=== PATIENT | male | born 1985 | race Caucasian/White ===

== ENCOUNTER 2017-09-03 20:55 | Inpatient (IN) | payer MEDICAID ==
[~2017-09-03] VITALS: Ht 170.2 cm; Wt 77.0 kg
[2017-09-03 20:58] VITALS: Ht 170.2 cm; Wt 77.0 kg
[2017-09-03] MEDS ORDERED: morphine 4 MG/ML VIAL IV STA (21:27)
[2017-09-03] MEDS ORDERED: ONDANSETRON 4 MG INJ IV STA (21:27)
[2017-09-03 21:46] LABS: BASOPHILS % 0.3 % (0.0-2.0); EOSINOPHILS % 0.2 % (0.0-7.0); HEMOGLOBIN 13.8 g/dl (14.0-18.0); LYMPHOCYTES # 1.4 10^3/ul (0.8-2.9); LYMPHOCYTES % 11.3 % (15.0-51.0); MEAN CORPUSCULAR HEMOGLOBIN 31.4 pg (29.0-33.0); MEAN CORPUSCULAR HGB CONC 35.4 g/dl (32.0-37.0); MEAN CORPUSCULAR VOLUME 88.6 fl (82.0-101.0); MEAN PLATELET VOLUME 8.9 fl (7.4-10.4); MONOCYTE # 0.8 10^3/ul (0.3-0.9); MONOCYTES % 6.7 % (0.0-11.0); NEUTROPHIL # 9.9 10^3/ul (1.6-7.5); NEUTROPHILS % 81.2 % (39.0-77.0); PLATELET COUNT 271 10^3/UL (140-415); RED CELL DISTRIBUTION WIDTH 11.8 % (11.5-14.5); WHITE BLOOD COUNT 12.2 10^3/ul (4.8-10.8)
[2017-09-03 21:59] LABS: ADD UMIC YES; UR ASCORBIC ACID NEGATIVE (NEGATIVE); UR BILIRUBIN (Dip) NEGATIVE (NEGATIVE); UR BLOOD (Dip) 1+ mg/dL (NEGATIVE); UR CLARITY CLEAR (CLEAR); UR COLOR YELLOW (YELLOW); UR GLUCOSE (Dip) NEGATIVE (NEGATIVE); UR KETONES (Dip) 1+ mg/dL (NEGATIVE); UR LEUKOCYTE ESTERASE (Dip) NEGATIVE Leu/ul (NEGATIVE); UR NITRITE (Dip) NEGATIVE (NEGATIVE); UR RBC 6 /HPF (0-5); UR SPECIFIC GRAVITY (Dip) 1.031 (1.003-1.030); UR TOTAL PROTEIN (Dip) 1+ mg/dl (NEGATIVE); UR UROBILINOGEN (Dip) NEGATIVE (NEGATIVE)
[2017-09-03 22:04] LABS: ALBUMIN 4.4 g/dl (3.3-4.9); ALBUMIN/GLOBULIN RATIO 1.29; BILIRUBIN,INDIRECT 0.5 mg/dl (0-1.1); BILIRUBIN,TOTAL 0.5 mg/dl (0.2-1.3); CALCIUM 9.8 mg/dl (8.4-10.2); CREATININE 0.84 mg/dl (0.61-1.24); POTASSIUM 3.8 mmol/L (3.5-5.1); TOTAL PROTEIN 7.8 g/dl (6.1-8.1)
--- NOTE | 2017-09-03 22:33 | ERD ---
ER Documentation Chief Complaint Chief Complaint RLQ abd pain x 1 day HPI This is a 32-year-old male who presents emergency department today complaining of right-sided abdominal pain that started yesterday. Patient states he has had nausea but no vomiting. States he had one bout of diarrhea this morning. States that he took Tylenol and Motrin for pain with some improvement in symptoms. Denies any fevers or chills. Denies any dysuria, hematuria.. ROS All systems reviewed and are negative except as per history of present illness. Allergies Allergies: Coded Allergies: No Known Allergy (Unverified , 09/03/17) PMhx/Soc Medical and Surgical Hx: pt denies Medical Hx, pt denies Surgical Hx Hx Alcohol Use: No Hx Substance Use: No Hx Tobacco Use: No Smoking Status: Never smoker Physical Exam Vitals Vital Signs Date Time Temp Pulse Resp B/P Pulse Ox O2 Delivery O2 Flow Rate FiO2 09/03/17 20:58 97.9 65 20 133/80 98 Physical Exam Const: NAD Head: Atraumatic Eyes: Normal Conjunctiva ENT: Normal External Ears, Nose and Mouth. Neck: Full range of motion..~ No meningismus. Resp: Clear to auscultation bilaterally Cardio: Regular rate and rhythm, no murmurs Abd: Soft, lower quadrant tenderness at McBurney's. non distended. Normal bowel sounds no left lower quadrant pain. No epigastric or right upper quadrant pain. Skin: No petechiae or rashes Back: No midline or flank tenderness Ext: No cyanosis, or edema Neur: Awake and alert Psych: Normal Mood and Affect Result Diagram: 09/03/17213609/03/172136 Results 24 hrs Laboratory Tests Test 09/03/17 21:37 White Blood Count 12.210^3/ul Red Blood Count 4.4010^6/ul Hemoglobin 13.8g/dl Hematocrit 39.0% Mean Corpuscular Volume 88.6fl Mean Corpuscular Hemoglobin 31.4pg Mean Corpuscular Hemoglobin Concent 35.4g/dl Red Cell Distribution Width 11.8% Platelet Count 68627^3/UL Mean Platelet Volume 8.9fl Neutrophils % 81.2% Lymphocytes % 11.3% Monocytes % 6.7% Eosinophils % 0.2% Basophils % 0.3% Nucleated Red Blood Cells % 0.0/100WBC Neutrophils # 9.910^3/ul Lymphocytes # 1.410^3/ul Monocytes # 0.810^3/ul Eosinophils # 0.010^3/ul Basophils # 0.010^3/ul Nucleated Red Blood Cells # 0.010^3/ul Urine Color YELLOW Urine Clarity CLEAR Urine pH 7.0 Urine Specific [place] 1.031 Urine Ketones 1+mg/dL Urine Nitrite NEGATIVEmg/dL Urine Bilirubin NEGATIVEmg/dL Urine Urobilinogen NEGATIVEmg/dL Urine Leukocyte Esterase NEGATIVELeu/ul Urine Microscopic RBC 6/HPF Urine Microscopic WBC 1/HPF Urine Hemoglobin 1+mg/dL Urine Glucose NEGATIVEmg/dL Urine Total Protein 1+mg/dl Sodium Level 146mmol/L Potassium Level 3.8mmol/L Chloride Level 108mmol/L Carbon Dioxide Level 27mmol/L Anion Gap 15 Blood Urea Nitrogen 13mg/dl Creatinine 0.84mg/dl Glucose Level 117mg/dl Calcium Level 9.8mg/dl Total Bilirubin 0.5mg/dl Direct Bilirubin 0.00mg/dl Indirect Bilirubin 0.5mg/dl Aspartate Amino Transf (AST/SGOT) 27IU/L Alanine Aminotransferase (ALT/SGPT) 45IU/L Alkaline Phosphatase 45IU/L Total Protein 7.8g/dl Albumin 4.4g/dl Globulin 3.40g/dl Albumin/Globulin Ratio 1.29 Lipase 72U/L Current Medications Medications (Trade) Dose Ordered Sig/Oliva Route PRN Reason Start Time Stop Time Status Last Admin Dose Admin Morphine Sulfate (morphine) 4 mg ONCE STAT IV 09/03/17 21:27 09/03/17 21:29 DC 09/03/17 21:42 Ondansetron HCl (Zofran Inj) 4 mg ONCE STAT IV 09/03/17 21:27 09/03/17 21:29 DC 09/03/17 21:42 Ketorolac Tromethamine (Toradol) 30 mg ONCE STAT IV 09/03/17 22:46 09/03/17 22:48 DC 09/03/17 22:53 DIAGNOSTIC IMAGING REPORT Patient: NILSA GALINDO : 1985 Age: 32 Sex: M MR #: [id number] DOS: 09/03/172126 Ordering MD: RANDI SHAH PA-C Location: [facility] Room/Bed: PROCEDURE: CT abdomen and pelvis without intravenous contrast. CLINICAL INDICATION: Pain. TECHNIQUE: CT of the abdomen/pelvis was performed utilizing axial images with reconstructions in sagittal and coronal planes. The administered radiation dose is CTDI 9.4 mGy, DLP 570 mGy-cm. One or more of the following dose reduction techniques were used: automated exposure control, adjustment of the mA and/or kV according to patient size and/or use of iterative reconstruction technique. COMPARISON: No pertinent prior examinations were submitted for comparison. FINDINGS: Visualized Chest: The visualized lung bases are clear. Abdomen: The spleen, pancreas, gallbladder,and adrenal glands are unremarkable. The liver is diffusely decreased in attenuation, compatible with hepatic steatosis. The kidneys are without hydronephrosis. No definite urinary calculi are seen. The appendix is identified in the right lower quadrant. The appendix is enlarged , measuring up to 11 mm and there are moderate periappendiceal inflammatory changes. A 10 mm fecalith is noted at the base of the appendix. No regional fluid collections are seen. There is no evidence of bowel obstruction. There is no evidence of intra-abdominal adenopathy or free fluid. Pelvis: There is no evidence of pelvic adenopathy or free fluid. The prostate and bladder are unremarkable. There is a moderate-sized fat-containing right inguinal hernia. Osseous structures: Unremarkable. IMPRESSION: Appendicitis. Hepatic steatosis. Moderate-sized fat-containing right inguinal hernia. RPTAT: HIKT .Mark Tamez MD MD Date Time Electronically viewed and signed by .Mark Tamez MD, on 09/03/2017 22:33 .T/ CC: RANDI SHAH PA-C Procedures/[facility] This is a 32-year-old male who presents the emergency department today complaining of right-sided abdominal pain that started yesterday as well as some nausea. On physical exam patient has right lower quadrant [facility] and given this I did obtain laboratory workup as well as imaging. Laboratory workup a mildly elevated white blood cell count. His hemoglobin is very mildly decreased. Platelets are within normal limits. Sodium is very mildly elevated otherwise electro lites are within normal limits. Glucose is within normal limits. Liver enzymes are within normal limits. Lipase is within normal limits. UA is negative for infection there is 6 microscopic red blood cells. CT abdomen pelvis noncontrast shows the appendix is identified in the right lower quadrant and is enlarged measuring up to 11 m millimeters and there are moderate periappendiceal inflammatory changes. There is a 10 mm fecalith noted the base of the appendix. There are no regional collections of fluid seen. There is no evidence of bowel obstruction. There is a moderate sized fat- containing right inguinal hernia. Symptoms at this time most consistent with acute appendicitis. I have discussed the patient with Dr. Gtz and he is agreed to admit the patient. Patient agreed to be admitted to the hospital. Any further orders placed will be completed by Dr. Gtz or the admitting surgeon. Patient was given morphine and Zofran here in the emergency department. He was continued to complain of pain and was therefore given Toradol. Departure Diagnosis: Primary Impression: Appendicitis Appendicitis type: acute appendicitis Acute appendicitis type: unspecified acute appendicitis type Qualified Code: K35.80 - Acute appendicitis, unspecified acute appendicitis type Condition: Fair RANDI SHAH PA-C Sep 03, 2017 22:33
--- NOTE | 2017-09-03 22:33 | RADRPT ---
PROCEDURE: CT abdomen and pelvis without intravenous contrast. CLINICAL INDICATION: Pain. TECHNIQUE: CT of the abdomen/pelvis was performed utilizing axial images with reconstructions in s agittal and coronal planes. The administered radiation dose is CTDI 9.4 mGy, DLP 570 mGy-cm. One or more of the following dose reduction techniques were used: automated exposure control, adjustment of the mA and/or kV according to patient size and/or use of iterative reconstruction technique. COMPARISON: No pertinent prior examinations were submitted for comparison. FINDINGS: Visualized Chest: The visualized lung bases are clear. Abdomen: The spleen, pancreas, gallbladder,and adrenal glands are unremarkable. The liver is diffusely dec reased in attenuation, compatible with hepatic steatosis. The kidneys are without hydronephrosis. No definite urinary calculi are seen. The appendix is identified in the right lower quadrant. The appendix is enlarged, measuring up to 11 mm and there are moderate periappendiceal inflammatory changes. A 10 mm fecalith is noted at the ba se of the appendix. No regional fluid collections are seen. There is no evidence of bowel obstructio n. There is no evidence of intra-abdominal adenopathy or free fluid. Pelvis: There is no evidence of pelvic adenopathy or free fluid. The prostate and bladder are unremarkable. There is a moderate-sized fat-containing right inguinal hernia. Osseous structures: Unremarkable. IMPRESSION: Appendicitis. Hepatic steatosis. Moderate-sized fat-containing right inguinal hernia. RPTAT: HIKT .Mark Tamez MD, Date Time Electronically viewed and signed by .Mark Tamez MD, MD on 09/03/2017 22:33 .T/
[2017-09-03] MEDS ORDERED: KETOROLAC 30 MG INJ IV STA (22:46)
[2017-09-03 23:13] VITALS: TEMP 98.1
[2017-09-03] MEDS ORDERED: PIPER-TAZO 3.375 GM IV (PMX) 100 ML IVPB ONE (23:30)
[2017-09-03] MEDS ORDERED: SOD CHLORIDE 0.9% 1,000 ML IV ONE (23:30)
[2017-09-04] VITALS (13 sets, daily range): BP systolic 97–121; BP diastolic 52–75; PULSE 56–78; RESP 13–22
--- NOTE | 2017-09-04 00:26 | RADRPT ---
PROCEDURE: XR Chest. CLINICAL INDICATION: Preoperative evaluation. TECHNIQUE: Portable AP upright view of the chest was obtained. COMPARISON: None. FINDINGS: The cardiomediastinal silhouette is within normal limits. The lungs are clear. There is no evidenc e for pleural effusion, pneumothorax or pulmonary vascular congestion. The osseous structures are i ntact with no evidence for acute abnormality. RPTAT:HJJR IMPRESSION: No evidence for acute intrathoracic pathology. Physician Kelechi Date Time Electronically viewed and signed by Physician Kelechi on 09/04/2017 00:26 JR/
--- NOTE | 2017-09-04 02:37 | ERD ---
ER Documentation Chief Complaint Chief Complaint RLQ abd pain x 1 day HPI The patient is a 32-year-old male, presenting to the ER because of right lower quadrant pain for 1 day, denies similar symptoms previously, denies fever, chills, neck pain, chest pain, vomiting, dysuria, diarrhea. He was seen in the ED 2 initially then transferred to ED 1 for further evaluation and treatment. He does not smoke nor drink Past medical/surgical history: None ROS All systems reviewed and are negative except as per history of present illness. Allergies Allergies: Coded Allergies: No Known Allergy (Unverified , 09/03/17) PMhx/Soc Medical and Surgical Hx: pt denies Medical Hx, pt denies Surgical Hx History of Surgery: No Anesthesia Reaction: No Hx Neurological Disorder: No Hx Respiratory Disorders: No Hx Cardiac Disorders: No Hx Psychiatric Problems: No Hx Miscellaneous Medical Probl: No Hx Alcohol Use: No Hx Substance Use: No Hx Tobacco Use: No Smoking Status: Never smoker Physical Exam Vitals Vital Signs Date Time Temp Pulse Resp B/P Pulse Ox O2 Delivery O2 Flow Rate FiO2 09/03/17 23:13 98.1 64 20 132/79 98 Room Air 09/03/17 20:58 97.9 65 20 133/80 98 Physical Exam Const: No acute distress. Head: Atraumatic. Eyes: Normal Conjunctiva. ENT: Normal External Ears, Nose and Mouth. Neck: Full range of motion. No meningismus. Resp: Clear to auscultation bilaterally. Cardio: Regular rate and rhythm. Abd: Soft, non distended, normal bowel sounds,Moderate right lower quadrant tenderness, no rigidity, rebound, CVA tenderness Skin: No petechiae or rashes. Back: No midline or flank tenderness. Ext: No cyanosis, or edema. Neur: Awake and alert. No focal deficit Psych: Normal Mood and Affect. Result Diagram: 09/03/17213609/03/172136 Results 24 hrs Laboratory Tests Test 09/03/17 21:37 White Blood Count 12.210^3/ul Red Blood Count 4.4010^6/ul Hemoglobin 13.8g/dl Hematocrit 39.0% Mean Corpuscular Volume 88.6fl Mean Corpuscular Hemoglobin 31.4pg Mean Corpuscular Hemoglobin Concent 35.4g/dl Red Cell Distribution Width 11.8% Platelet Count 98165^3/UL Mean Platelet Volume 8.9fl Neutrophils % 81.2% Lymphocytes % 11.3% Monocytes % 6.7% Eosinophils % 0.2% Basophils % 0.3% Nucleated Red Blood Cells % 0.0/100WBC Neutrophils # 9.910^3/ul Lymphocytes # 1.410^3/ul Monocytes # 0.810^3/ul Eosinophils # 0.010^3/ul Basophils # 0.010^3/ul Nucleated Red Blood Cells # 0.010^3/ul Urine Color YELLOW Urine Clarity CLEAR Urine pH 7.0 Urine Specific [place] 1.031 Urine Ketones 1+mg/dL Urine Nitrite NEGATIVEmg/dL Urine Bilirubin NEGATIVEmg/dL Urine Urobilinogen NEGATIVEmg/dL Urine Leukocyte Esterase NEGATIVELeu/ul Urine Microscopic RBC 6/HPF Urine Microscopic WBC 1/HPF Urine Hemoglobin 1+mg/dL Urine Glucose NEGATIVEmg/dL Urine Total Protein 1+mg/dl Sodium Level 146mmol/L Potassium Level 3.8mmol/L Chloride Level 108mmol/L Carbon Dioxide Level 27mmol/L Anion Gap 15 Blood Urea Nitrogen 13mg/dl Creatinine 0.84mg/dl Glucose Level 117mg/dl Calcium Level 9.8mg/dl Total Bilirubin 0.5mg/dl Direct Bilirubin 0.00mg/dl Indirect Bilirubin 0.5mg/dl Aspartate Amino Transf (AST/SGOT) 27IU/L Alanine Aminotransferase (ALT/SGPT) 45IU/L Alkaline Phosphatase 45IU/L Total Protein 7.8g/dl Albumin 4.4g/dl Globulin 3.40g/dl Albumin/Globulin Ratio 1.29 Lipase 72U/L Current Medications Medications (Trade) Dose Ordered Sig/Oliva Route PRN Reason Start Time Stop Time Status Last Admin Dose Admin Morphine Sulfate (morphine) 4 mg ONCE STAT IV 09/03/17 21:27 09/03/17 21:29 DC 09/03/17 21:42 Ondansetron HCl (Zofran Inj) 4 mg ONCE STAT IV 09/03/17 21:27 09/03/17 21:29 DC 09/03/17 21:42 Ketorolac Tromethamine 30 mg 30 mg ONCE STAT IV 09/03/17 22:46 09/03/17 22:48 DC 09/03/17 22:53 Piperacillin Sod/ Tazobactam Sod 100 ml @ 200 mls/hr ONCE ONCE IVPB 09/03/17 23:30 09/03/17 23:59 DC 09/04/17 00:14 Sodium Chloride (NS) 1,000 ml @ 1,000 mls/hr Q1H ONCE IV 09/03/17 23:30 09/04/17 00:29 DC 09/04/17 00:14 Procedures/[place] [address] Radiology Main Line: [phone] DIAGNOSTIC IMAGING REPORT Patient: NILSA GALINDO : 1985 Age: 32 Sex: M MR #: [id number] DOS: 09/03/172126 Ordering MD: RANDI SHAH PA-C Location: [facility] Room/Bed: PROCEDURE: CT abdomen and pelvis without intravenous contrast. CLINICAL INDICATION: Pain. TECHNIQUE: CT of the abdomen/pelvis was performed utilizing axial images with reconstructions in sagittal and coronal planes. The administered radiation dose is CTDI 9.4 mGy, DLP 570 mGy-cm. One or more of the following dose reduction techniques were used: automated exposure control, adjustment of the mA and/or kV according to patient size and/or use of iterative reconstruction technique. COMPARISON: No pertinent prior examinations were submitted for comparison. FINDINGS: Visualized Chest: The visualized lung bases are clear. Abdomen: The spleen, pancreas, gallbladder,and adrenal glands are unremarkable. The liver is diffusely decreased in attenuation, compatible with hepatic steatosis. The kidneys are without hydronephrosis. No definite urinary calculi are seen. The appendix is identified in the right lower quadrant. The appendix is enlarged , measuring up to 11 mm and there are moderate periappendiceal inflammatory changes. A 10 mm fecalith is noted at the base of the appendix. No regional fluid collections are seen. There is no evidence of bowel obstruction. There is no evidence of intra-abdominal adenopathy or free fluid. Pelvis: There is no evidence of pelvic adenopathy or free fluid. The prostate and bladder are unremarkable. There is a moderate-sized fat-containing right inguinal hernia. Osseous structures: Unremarkable. IMPRESSION: Appendicitis. Hepatic steatosis. Moderate-sized fat-containing right inguinal hernia. RPTAT: HIKT .Mark Tamez MD, MD Date Time Electronically viewed and signed by .Mark Tamez MD, on 09/03/2017 22:33 .T/ CC: RANDI SHAH PA-C [place] [id number] Radiology Main Line: [phone] DIAGNOSTIC IMAGING REPORT Patient: NILSA GALINDO : 1985 Age: 32 Sex: M MR #: [id number] DOS: 09/03/17 2329 Ordering MD: PACHECO GOOD MD Location: E/R Room/Bed: PROCEDURE: XR Chest. CLINICAL INDICATION: Preoperative evaluation. TECHNIQUE: Portable AP upright view of the chest was obtained. COMPARISON: None. FINDINGS: The cardiomediastinal silhouette is within normal limits. The lungs are clear. There is no evidence for pleural effusion, pneumothorax or pulmonary vascular congestion. The osseous structures are intact with no evidence for acute abnormality. RPTAT:HJJR IMPRESSION: No evidence for acute intrathoracic pathology. Physician Kelechi Date Time Electronically viewed and signed by Physician Kelechi on 09/04/2017 00:26 JR/ CC: PACHECO GOOD MD EKG: Read by emergency physician Rate/Rhythm: Normal Sinus Rhythm 60 beats/min QRS, ST, T-waves: No ST elevation, no T inversion, Sinus arrhythmia Impression: Normal EKG MEDICAL MAKING DECISION: The patient is a 32-year-old male, presenting with acute appendicitis. He was treated with Toradol 30 mg IV, morphine 4 mg IV for pain and Zofran 4 mg IV for nausea, 1 L normal saline, Zosyn IV for acute appendicitis with good response. The differential diagnoses considered include but are not limited to cholelithiasis, cholecystitis, cystitis, pancreatitis, hepatitis, gastritis, peptic ulcer disease, gastric ulcer, appendicitis, diverticulitis, cholangitis, choledocholithiasis, partial small bowel obstruction. Consultation: I discussed the patient with the on-call general surgeon Dr. Childers at 11:35 PM, who was made aware of the lab, the treatment, the patient condition. He accepted the patient Departure Diagnosis: Primary Impression: Appendicitis Appendicitis type: acute appendicitis Acute appendicitis type: unspecified acute appendicitis type Qualified Code: K35.80 - Acute appendicitis, unspecified acute appendicitis type Additional Impression: Anemia Condition: Stable Comments I discussed the findings with the patient. I discussed the patient with the on- call hospitalist Dr. Paula at 11:45 PM who was made aware of the lab, the treatment, the patient condition. The patient is admitted to [facility] The patient's blood pressure was elevated (>120/80) but appears stable without evidence of hypertension emergency or urgency. The patient was counseled about the risks of hypertension and urged to pursue outpatient monitoring and therapy within a week with their primary care physician. Disclaimer: Inadvertent spelling and grammatical errors are likely due to EHR/ dictation software use and do not reflect on the overall quality of patient care. Also, please note that the electronic time recorded on this note does not necessarily reflect the actual time of the patient encounter. PACHECO GOOD MD Sep 04, 2017 02:36
[2017-09-04] MEDS ORDERED: DEXTROSE 5%-0.45% NACL 1,000 ML IV SCH (04:34)
[2017-09-04] MEDS ORDERED: morphine 2 MG INJ IV PRN (05:00)
[2017-09-04] MEDS ORDERED: NACL 0.9% 3 ML SYG IV SCH (05:00)
[2017-09-04] MEDS ORDERED: ONDANSETRON 4 MG INJ IV PRN ×2 (05:00→14:30)
[2017-09-04] MEDS ORDERED: ALBUTEROL/IPRATROPIUM (NEB) 3 ML AMP HHN PRN (05:00)
[2017-09-04 06:24] LABS: BASOPHILS % 0.2 % (0.0-2.0); EOSINOPHILS % 0.4 % (0.0-7.0); HEMATOCRIT 37.7 % (42.0-52.0); HEMOGLOBIN 12.6 g/dl (14.0-18.0); LYMPHOCYTES # 1.8 10^3/ul (0.8-2.9); LYMPHOCYTES % 17.5 % (15.0-51.0); MEAN CORPUSCULAR HEMOGLOBIN 30.1 pg (29.0-33.0); MEAN CORPUSCULAR HGB CONC 33.4 g/dl (32.0-37.0); MEAN PLATELET VOLUME 9.1 fl (7.4-10.4); MONOCYTE # 0.8 10^3/ul (0.3-0.9); MONOCYTES % 8.3 % (0.0-11.0); NEUTROPHIL # 7.4 10^3/ul (1.6-7.5); NEUTROPHILS % 73.2 % (39.0-77.0); PLATELET COUNT 253 10^3/UL (140-415); RED BLOOD COUNT 4.19 10^6/ul (4.70-6.10); RED CELL DISTRIBUTION WIDTH 11.9 % (11.5-14.5); WHITE BLOOD COUNT 10.2 10^3/ul (4.8-10.8)
[2017-09-04 06:36] LABS: ALBUMIN 3.6 g/dl (3.3-4.9); ALBUMIN/GLOBULIN RATIO 1.16; BILIRUBIN,INDIRECT 0.7 mg/dl (0-1.1); BILIRUBIN,TOTAL 0.7 mg/dl (0.2-1.3); CREATININE 0.94 mg/dl (0.61-1.24); MAGNESIUM 1.8 mg/dl (1.7-2.5); PHOSPHORUS 4.1 mg/dl (2.5-4.9); POTASSIUM 4.3 mmol/L (3.5-5.1); TOTAL PROTEIN 6.7 g/dl (6.1-8.1)
--- NOTE | 2017-09-04 06:44 | HP ---
Date/Time of Note Date/Time of Note DATE: 09/04/17 TIME: 06:42 Assessment/Plan VTE Prophylaxis VTE Prophylaxis Intervention: SCD's Lines/Catheters IV Catheter Type (from Nrsg): Saline Lock Assessment/Plan Assessment/Plan 1. Acute appendicitis - Keep n.p.o. with IV fluid - Pain management - Awaiting surgical evaluation 2. Right inguinal hernia - No sign of incarceration -Surgical team may also comment on this HPI/ROS Admit Date/Time Admit Date/Time Sep 03, 2017 at 23:45 Hx of Present Illness This is a 32-year-old male with no significant past medical history who presented emergency department complaining of abdominal pain 1 day. Pain is mainly localized in the right lower quadrant area with associated nausea. Denied vomiting. Denied fever/chills, shortness of breath, chest pain or urinary symptoms. When presented to the ER, CT abdomen/pelvis showed appendicitis, fatty steatosis and moderate-sized fat-containing right inguinal hernia. PMH/Family/Social Social History Smoking Status: Never smoker Exam/Review of Systems Vital Signs Vitals Vital Signs Date Time Temp Pulse Resp B/P Pulse Ox O2 Delivery O2 Flow Rate FiO2 09/04/17 01:00 98.0 59 20 121/75 98 09/04/17 00:21 Room Air Intake and Output 09/03/17 09/03/17 09/04/17 15:00 23:00 07:00 Intake Total 200 ml Balance 200 ml Exam Constitutional: alert, oriented, well developed Head: atraumatic, normocephalic Eyes: EOMI, PERRL Respiratory: clear to auscultation, normal air movement Cardiovascular: regular rate and rhythm Gastrointestinal: soft, tender Extremities: normal pulses Labs Result Diagram: 09/04/1752609/03/17 2137 Medications Medications Current Medications Dextrose/Sodium Chloride (D5-1/2ns) 1,000 ml @ 120 mls/hr Q8H20M IV Last administered on 09/04/17t 05:57; Admin Dose 120 MLS/HR; Start 09/04/17 at 04: 34 Ondansetron HCl (Zofran Inj) 4 mg Q6H PRN IV NAUSEA AND/OR VOMITING; Start at 05:00 Morphine Sulfate (morphine) 2 mg Q4H PRN IV SEVERE PAIN LEVEL 7-10; Start at 05:00 NORA KERR MD Sep 04, 2017 06:44
[2017-09-04] MEDS ORDERED: NEOSTIGMINE 3 MG/3 ML SYRINGE ONE ×2 (07:00→14:37)
[2017-09-04] MEDS ORDERED: GLYCOPYRROLATE 0.4 MG INJ ONE ×2 (07:00→14:38)
--- NOTE | 2017-09-04 11:38 | CONS ---
Date/Time of Note Date/Time of Note DATE: 09/04/17 TIME: 11:38 Assessment/Plan Assessment/Plan Additional Assessment/Plan [facility] IN[facility]IENT CONSULTATION NOTE DATE OF SERVICE: 09/04/2017 PLACE OF SERVICE: [facility], 2nd floor ASSESSMENT AND PLAN: A very-pleasant 32-year-old gentleman presenting with acute appendicitis. I recommended laparoscopic, possible open appendectomy and obtain patient's and family's consent for the operation. I explained all of the above in detail with the patient and his family including his mother and answered all questions. Patient and family appear to understand and agreed with plans. With above assessment, I've recommended the followin. To the operating room for above Thank you very much for having me involved in the care of this very pleasant patient and wonderful family. If you have any questions, please feel free to contact me at [phone]. Nature of presenting problem: low severity Please note that, given the limited number of diagnoses or management options, the limited amount and/or complexity of data needed to be reviewed, and low risk of complications and/or morbidity or mortality, this qualifies as low complexity type of decision-making. Disclaimers: 1. Inadvertent spelling and grammatical errors are likely due to electronic health record (EHR)/dictation software used and do not reflect on the quality of delivered patient care. 2. The electronic timestamp recorded on this note does not necessarily reflect the actual date and time of the visit or the service. 3. Portions of this note may have been created through electronic templates and computer algorithms that might bring in information either from the system or from other physicians and providers. Please note that such information may or may not contain errors, the occurrence of which are outside of my control. In general (but not always) this happens either in the beginning or at the end of the note. The portion of the note that I have created are generally done in 1 continuous block of text, flanked at the beginning and at the end by " ", and entered into one field in the EHR. 4. There may be other unanticipated errors in the note that are outside of my control. I can only attest to the portions of the note that I have created. Updated clinical summary: A very-pleasant 32-year-old gentleman admitted to [facility] through the emergency department on 09/04/2017 with signs and symptoms consistent with acute appendicitis. Comorbidities: 1. BMI 26.6 CONSULTATION REQUESTED BY: Momo Paula MD Dear Dr. Paula Thank you very much for the opportunity to participate in the care of this very pleasant gentleman and his wonderful family. HISTORY OF PRESENT ILLNESS: The patient is a very pleasant otherwise healthy 32 -year-old gentleman with only comorbidity show BMI 26.6 who presented with 1 day history of right lower quadrant abdominal pain that seemed to have gotten worse, not associated with nausea or vomiting or fevers or chills. He was evaluated at [facility] through the emergency department. Workup demonstrated white blood cell count of 12.[address] scan that was consistent with acute appendicitis. I was kindly asked to consult. No other new issues during my visit with the patient or complaints that the patient reported. No prior surgeries in the past and otherwise fairly healthy. ALLERGIES: No known drug allergies MEDICATIONS Documented in the electronic records and reviewed by me. Please see the electronic records for details, as well as details for inpatient medications which were also reviewed by me. SOCIAL HISTORY: The patient lives with family. - Tob; - ETOH; - IVDU; works in [employer] FAMILY HISTORY: There are no significant medical, surgical or oncologic issues in the family as reported by the patient or reflected in the chart. REVIEW OF SYSTEMS: Other than mentioned above, there were no other pertinent positives or pertinent negatives in an otherwise complete 14 point review of systems. PHYSICAL EXAMINATION GENERAL: The patient appears to be a very pleasant gentleman of descent lying in bed, appearing stated age, and otherwise in no acute distress. BMI: 26.6 VITAL SIGNS: AVSS (please also see auto important data if available as well as the electronic records) HEENT: Normocephalic and atraumatic. Extraocular muscles and hearing are grossly intact bilaterally and symmetrically. Sclerae are nonicteric. Oral cavity is clear; oral mucosa appear to be pink and moist. Dentition: fair. NECK: Supple. There is no lymphadenopathy or JVD. There is no submental, submandibular or supraclavicular lymphadenopathy. CHEST: Rises symmetrically with each breath; patient is breathing comfortably. There are no audible wheezes, rales or rhonchi on the gross exam. HEART: Pulse is regular and palpable on the right wrist. Capillary refill is normal. Carotid pulses are palpable bilaterally and symmetrically in the neck. EXTREMITIES: Lower extremities contain no pitting edema around the ankles bilaterally and symmetrically. ABDOMEN: Abdomen is soft, tender to palpation in the right lower quadrant and nondistended. No evidence of ascites, organomegaly, caput medusae, engorged subcutaneous veins, or other abnormalities. There are no peritoneal signs or guarding. SKIN: Appears to be pink and feels warm to touch. NEUROLOGIC: Awake, alert, and follows commands appropriately. LABORATORY DATA: See below IMAGING: See electronic chart. Please note that I've personally reviewed all pertinent available images and I agree in general with their overall reported findings. Consultation Date/Type/Reason Admit Date/Time Sep 03, 2017 at 23:45 Social History Smoking Status: Never smoker Exam/Review of Systems Vital Signs Vitals Vital Signs Date Time Temp Pulse Resp B/P Pulse Ox O2 Delivery O2 Flow Rate FiO2 09/04/17 08:06 98.6 77 18 106/56 98 09/04/17 00:21 Room Air Intake and Output 09/03/17 09/03/17 09/04/17 15:00 23:00 07:00 Intake Total 200 ml Balance 200 ml Results Result Diagram: 09/04/17 0527 09/04/17 0526 Results 24 hrs Laboratory Tests Test 09/03/17 21:37 09/04/17 05:26 09/04/17 05:27 White Blood Count 12.2 H 10.2 Red Blood Count 4.40 L 4.19 L Hemoglobin 13.8 L 12.6 L Hematocrit 39.0 L 37.7 L Mean Corpuscular Volume 88.6 90.0 Mean Corpuscular Hemoglobin 31.4 30.1 Mean Corpuscular Hemoglobin Concent 35.4 33.4 Red Cell Distribution Width 11.8 11.9 Platelet Count 271 253 Mean Platelet Volume 8.9 9.1 Neutrophils % 81.2 H 73.2 Lymphocytes % 11.3 L 17.5 Monocytes % 6.7 8.3 Eosinophils % 0.2 0.4 Basophils % 0.3 0.2 Nucleated Red Blood Cells % 0.0 0.0 Neutrophils # 9.9 H 7.4 Lymphocytes # 1.4 1.8 Monocytes # 0.8 0.8 Eosinophils # 0.0 0.0 Basophils # 0.0 0.0 Nucleated Red Blood Cells # 0.0 0.0 Urine Color YELLOW Urine Clarity CLEAR Urine pH 7.0 Urine Specific [place] 1.031 H Urine Ketones 1+ H Urine Nitrite NEGATIVE Urine Bilirubin NEGATIVE Urine Urobilinogen NEGATIVE Urine Leukocyte Esterase NEGATIVE Urine Microscopic RBC 6 H Urine Microscopic WBC 1 Urine Hemoglobin 1+ H Urine Glucose NEGATIVE Urine Total Protein 1+ H Sodium Level 146 H 144 Potassium Level 3.8 4.3 Chloride Level 108 108 Carbon Dioxide Level 27 30 Anion Gap 15 10 # Blood Urea Nitrogen 13 11 Creatinine 0.84 0.94 Glucose Level 117 110 Calcium Level 9.8 9.0 Total Bilirubin 0.5 0.7 Direct Bilirubin 0.00 0.00 Indirect Bilirubin 0.5 0.7 Aspartate Amino Transf (AST/SGOT) 27 22 Alanine Aminotransferase (ALT/SGPT) 45 39 Alkaline Phosphatase 45 35 L Total Protein 7.8 6.7 # Albumin 4.4 3.6 Globulin 3.40 H 3.10 Albumin/Globulin Ratio 1.29 1.16 Lipase 72 Phosphorus Level 4.1 Magnesium Level 1.8 Medications Medications Current Medications Dextrose/Sodium Chloride (D5-1/2ns) 1,000 ml @ 120 mls/hr Q8H20M IV Last administered on 09/04/17 05:57; Admin Dose 120 MLS/HR; Start 09/04/17 at 04: 34 Ondansetron HCl (Zofran Inj) 4 mg Q6H PRN IV NAUSEA AND/OR VOMITING; Start at 05:00 Morphine Sulfate 2 mg 2 mg Q4H PRN IV SEVERE PAIN LEVEL 7-10 Last administered on 09/04/17 09:37; Admin Dose 2 MG; Start 09/04/17 at 05:00 Piperacillin Sod/ Tazobactam Sod (Zosyn 3.375gm/ 100 ml (Pmx)) 100 ml @ 200 mls /hr Q6 IVPB ; Start 09/04/17 at 12:00 MAU GILLIAM M.D. Sep 04, 2017 11:38
--- NOTE | 2017-09-04 11:43 | HPN ---
Date/Time of Note Date/Time of Note DATE: 09/04/17 TIME: 11:43 Interval H&P Admission Note Pt. seen H&P reviewed: No system changes Pt. seen H&P reviewed. No system changes (I attest that I have seen and examined the patient and reviewed the operation in detail, as well as its risks , benefits and alternatives of the operation). I attest that I have seen and examined the patient and reviewed in detail the operation, and its associated risks, benefits and alternative. I have answered all the patient's questions to the best of my ability and the patient wishes to proceed. Please refer to rest of electronic medical record for additional updates. MAU GILLIAM M.D. Sep 04, 2017 11:43
[2017-09-04] MEDS ORDERED: PIPER-TAZO 3.375 GM IV (PMX) 100 ML IVPB SCH (12:00)
[2017-09-04] MEDS ORDERED: BUPIVACAINE 0.5%/EPI (SDV) 30 ML INJ ONE (12:26)
[2017-09-04] MEDS ORDERED: FENTAnyl 50 MCG/ML VIAL ONE (13:41)
[2017-09-04] MEDS ORDERED: ROCURONIUM 50 MG INJ ONE (14:22)
[2017-09-04] MEDS ORDERED: LIDOCAINE 2% (SDV) 5 ML INJ ONE (14:22)
[2017-09-04] MEDS ORDERED: PROPOFOL 20 ML ONE (14:22)
[2017-09-04] MEDS ORDERED: KETOROLAC 30 MG INJ IV PRN (14:30)
[2017-09-04] MEDS ORDERED: LABETALOL HCL 20MG INJ IV PRN (14:30)
[2017-09-04] MEDS ORDERED: HYDROmorphONE (0.2 MG/ML) 10ML SYG IV PRN ×3 (14:30)
[2017-09-04] MEDS ORDERED: hydrALAzine 20 MG INJ IV PRN (14:30)
[2017-09-04] MEDS ORDERED: METOCLOPRAMIDE 10 MG INJ IV PRN (14:30)
[2017-09-04] MEDS ORDERED: DIPHENHYDRAMINE 50 MG INJ IV PRN (14:30)
[2017-09-04] MEDS ORDERED: FENTAnyl 50 MCG/ML VIAL IV PRN ×3 (14:30)
[2017-09-04] MEDS ORDERED: EPHEDrine SULFATE 50 MG/5 ML SYG IV PRN (14:30)
[2017-09-04] MEDS ORDERED: MEPERIDINE 25 MG INJ IV PRN (14:30)
[2017-09-04] MEDS ORDERED: ONDANSETRON 4 MG INJ ONE (14:31)
[2017-09-04] MEDS ORDERED: DEXAMETHASONE 4 MG/ML 1 ML INJ ONE (14:31)
--- NOTE | 2017-09-04 15:05 | OPR ---
Date/Time of Note Date/Time of Note DATE: 09/04/17 TIME: 15:04 Operative Report Preoperative Diagnosis n Postoperative Diagnosis n Surgeon see signature line Inventory Control Specialist n Anesthesia Type: other Estimated Blood Loss: other Transfusion none Specimen n Grafts/Implants none Complications none Procedure Description [facility]IENT [facility] NOTE PLACE OF SERVICE: [facility] DATE OF SURGERY: 09/04/2017 PREOPERATIVE DIAGNOSIS: 1. Acute appendicitis 2. BMI 26.6 POSTOPERATIVE DIAGNOSIS: 1. Acute appendicitis 2. BMI 26.6 OPERATION: 1. Laparoscopic appendectomy SURGEON: Mau Gilliam M.D. PARASITOLOGIST: None ANESTHESIA: General endotracheal tube anesthesia ANESTHESIOLOGIST: Jai Vizcarra M.D. BRIEF SUMMARY: An otherwise uncomplicated laparoscopic appendectomy was performed with findings of non-perforated appendicitis. Updated clinical summary: A very-pleasant 32-year-old gentleman admitted to [facility] through the emergency department on 09/04/2017 with signs and symptoms consistent with acute appendicitis. Comorbidities: 1. BMI 26.6 BRIEF HISTORY: The patient is a very pleasant 32-year-old gentleman with above comorbidities whom I was kindly asked to consult regarding management of what appeared to be acute appendicitis based on his physical examination and history as well as elevated white blood cell count and CT findings. I met with the patient and family and counseled them regarding the possible options of treatment, and I strongly suggested a laparoscopic, possible open appendectomy. We reviewed the operation in detail as well as the risks, benefits, alternatives , and expected outcomes of this operation. After careful consideration of all the risks, benefits, and alternatives, the patient and family appeared to understand those risks and wished to proceed with surgery. For a detailed report of my consultation with patient and family, please refer to my separate consultation note. STATEMENT OF THE INFORMED CONSENT: The patient and family appeared to understand the risks of the operation to include, but not be limited to risk of postoperative pain and scar tissue, possible infection or bleeding requiring other interventions such as opening the wound, placement of drainage catheters, or other operative interventions; possible injury to surrounding to structures including bowel, bladder, bile duct, or blood vessels, or solid organs such as liver, kidney, or pancreas requiring other interventions or procedures; possible leakage of bowel from anastomotic sites or suture lines causing significant increase in morbidity and mortality and requiring multiple interventions including but not limited to, placement of drainage catheters, imaging studies, as well as operative interventions; possible other source of sepsis such as urinary tract infections or pneumonias, or other sources of potentially life threatening problems such as deep venous thrombus formation causing pulmonary embolism, myocardial arrhythmias and infarctions, and even . After careful consideration of all their options, the patient and family appeared to understand and wished to proceed with surgery. DESCRIPTION OF PROCEDURE: After obtaining informed consent, the patient was brought into the operating room and was placed in a normal supine position, where successful general endotracheal tube anesthesia was performed. Intravenous access was already in place and intravenous antimicrobials had been appropriately chosen and dosed prior to the operation. The patient's abdominal skin was prepped and draped from the nipple line down to the level of the upper thighs in the usual sterile fashion. We then called a surgical time-out where the patient's identification, date of , nature of the operation, allergies , presence of intravenous antimicrobials, presence of needed equipment, and any other concerns were reviewed and agreed upon by all members of the operating room team. We then started the operation by placing a 5 mm skin incision in the left lower quadrant and then introduced a 5 mm [employer] trocar into the peritoneal space, visualizing all the layers of the abdominal wall as we entered. Note that there was no indication of any injury to underlying structures with our entry into the peritoneal space. We insufflated the abdominal cavity to a maximum pressure of 15 mmHg and again inspected the area of insertion and ensured no obvious injury to underlying structures prior to inspecting the abdominal cavity and showing no obvious pus, bowel contents, or other abnormal features. We could not see the appendix very well. We could also see a right inguinal hernia (indirect) containing omentum within it. No bowel involvement as far as we could see. We, therefore, injected the future sites of our other trocars with 0.25% Marcaine with epinephrine and placed a 5 mm [employer] trocar into the midline suprapubic area, taking care not to injure the bladder. Note that the patient had not urinated prior to the operation, and bladder was somewhat full. We also placed a 12 mm trocar in the umbilical midline area , all under direct visualization. With our instruments in place, we had excellent visualization and access to the right lower quadrant. We then identified the appendix, which was inflamed but had a normal base coming out of the cecum. Note that the anatomy was a bit difficult given the socked in nature of the midportion of the appendix and the slightly limited visualization that was as a consequence of the omentum going into the right inguinal hernia region. I did try to reduce the omentum from the right inguinal hernia region but I was not able to. I was able to manipulate the body of the appendix and eventually got enough room to be able to fire 1 vascular (white) load of the hand-held 40 mm laparoscopic stapler across the mesentery of the appendix to free it up from the retroperitoneal wall after I made a bit of judicious dissection using cautery and blunt dissection on the sides to create the room. Stapler fired without any difficulties. This allowed further access to the base of the appendix which we eventually were able to get circumferential control around and then use another firing of the same stapler using vascular (white) load to transect across the appendix at its base right next to the cecum. 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 Hemostasis was achieved. We then delivered the appendix out through the 12 mm trocar site inside of an EndoCatch bag without having to enlarge the fascial defect as well as without contaminating the wound. The specimen was sent to Pathology for further analysis. We then again ensured adequate hemostasis and bowel stasis, removed all our equipment including the pneumoperitoneum from the abdominal cavity prior to closing the infraumbilical fascia with 1 [id number] 0 Vicryl suture on a UR-6 needle, washing the wounds with copious amounts of normal saline, injecting the initial insertion point of the trocar with 0.25% Marcaine with epinephrine, and then closing the skin using interrupted 4-0 Monocryl sutures. Light dressing was then applied. At the end of the operation, both the sponge count and needle count were reportedly correct x2. The patient tolerated the procedure without any reported complications. ESTIMATED BLOOD LOSS: Less than 10 mL. BLOOD OR BLOOD PRODUCT TRANSFUSIONS: None to my knowledge. SPECIMENS: 1. Appendix COMPLICATIONS: None. GRAFTS: None DISPOSITION: Recovery area. Disclaimers: 1. Inadvertent spelling and grammatical errors are likely due to electronic health record (EHR)/dictation software used and do not reflect on the quality of delivered patient care. 2. The electronic timestamp recorded on this note does not necessarily reflect the actual date and time of the visit or the service. 3. Portions of this note may have been created through electronic templates and computer algorithms that might bring in information either from the system or from other physicians and providers. Please note that such information may or may not contain errors, the occurrence of which are outside of my control. In general (but not always) this happens either in the beginning or at the end of the note. The portion of the note that I have created are generally done in 1 continuous block of text, flanked at the beginning and at the end by " ", and entered into one field in the EHR. 4. There may be other unanticipated errors in the note that are outside of my control. I can only attest to the portions of the note that I have created. MAU GILLIAM M.D. Sep 04, 2017 15:05
[2017-09-04] MEDS ORDERED: BISACODYL 10 MG SUPP PR PRN (15:30)
[2017-09-04] MEDS ORDERED: NA PHOSPHATE/BIPHOS 133 ML ENEMA PR PRN (15:30)
[2017-09-04] MEDS ORDERED: HYDROmorphONE 0.5 MG/0.5 ML SYG IV PRN (15:30)
[2017-09-04] MEDS ORDERED: HYDROCODONE/APAP (5/325) TAB PO PRN (15:30)
[2017-09-04] MEDS ORDERED: HYDROmorphONE 2 MG/ML SYG IV PRN (15:30)
[2017-09-04] MEDS: HYDROCODONE/APAP (5/325) TAB PO PRN (22:04)
[2017-09-04] MEDS: DOCUSATE SODIUM 100 MG CAP PO PRN (22:10)
[2017-09-05 01:54] VITALS: BP 95/50; RESP 20
[2017-09-05 05:13] LABS: BASOPHILS % 0.1 % (0.0-2.0); HEMATOCRIT 35.6 % (42.0-52.0); HEMOGLOBIN 12.3 g/dl (14.0-18.0); LYMPHOCYTES # 1.2 10^3/ul (0.8-2.9); LYMPHOCYTES % 10.3 % (15.0-51.0); MEAN CORPUSCULAR HGB CONC 34.6 g/dl (32.0-37.0); MEAN CORPUSCULAR VOLUME 89.7 fl (82.0-101.0); MEAN PLATELET VOLUME 9.1 fl (7.4-10.4); MONOCYTE # 0.6 10^3/ul (0.3-0.9); MONOCYTES % 4.8 % (0.0-11.0); NEUTROPHIL # 9.8 10^3/ul (1.6-7.5); NEUTROPHILS % 84.5 % (39.0-77.0); PLATELET COUNT 250 10^3/UL (140-415); RED BLOOD COUNT 3.97 10^6/ul (4.70-6.10); RED CELL DISTRIBUTION WIDTH 11.9 % (11.5-14.5); WHITE BLOOD COUNT 11.6 10^3/ul (4.8-10.8)
[2017-09-05 05:41] LABS: CREATININE 0.86 mg/dl (0.61-1.24); MAGNESIUM 1.8 mg/dl (1.7-2.5); PHOSPHORUS 4.3 mg/dl (2.5-4.9); POTASSIUM 4.2 mmol/L (3.5-5.1)
[2017-09-05] MEDS: HYDROCODONE/APAP (5/325) TAB PO PRN ×2 (08:00→13:54)
[2017-09-05 08:10] VITALS: BP 117/72; RESP 16
[2017-09-05] MEDS ORDERED: DOCU-216 PO (08:53)
[2017-09-05] MEDS ORDERED: HYDR-3498 PO (08:53)
[2017-09-05] MEDS ORDERED: FAMOTIDINE 20 MG INJ IV SCH (09:00)
[2017-09-05] MEDS ORDERED: ENOXAPARIN 40 MG/0.4 ML SYG SC SCH (09:00)
--- NOTE | 2017-09-05 09:00 | PDOCDIS ---
Discharge Instructions DIAGNOSIS Discharge Diagnosis 1. Acute appendicitis 2. Hx: Right inguinal hernia HOME CARE INSTRUCTIONS: Diet Instructions: Low Fat /Cholesterol FOLLOW UP/APPOINTMENTS Follow-up Plan 1. Follow up with Dr. Tavon Coronel in one week SILVIA MARSH Sep 05, 2017 09:00
[2017-09-05] MEDS: DOCUSATE SODIUM 100 MG CAP PO PRN (10:57)
--- NOTE | 2017-09-05 10:58 | DS ---
Date/Time of Note Date/Time of Note DATE: 09/05/17 TIME: 10:57 Discharge Summary Admission/Discharge Info Admit Date/Time Sep 03, 2017 at 23:45 Discharge Date/Time Discharge Diagnosis 1. Acute appendicitis 2. Hx: Right inguinal hernia Patient Condition: Stable Consults 1. Dr. Tavon Coronel Hospital Course This is a 32-year-old male with no past medical history came to [facility] due to reports of abdominal pain. Patient did report his abdominal pain was more on right lower abdominal quadrant. He had a CT scan with findings consistent with appendicitis. He was seen by general surgeon and provided with laparoscopic appendectomy with good response. He was also seen with incidental finding of right inguinal hernia for which she was advised for outpatient follow-up with surgeon. advance his diet and he did tolerated it well. The plan of care was discussed with the patient and patient did verbalize understanding. During his course of stay he did improve on the day of discharge patient was in stable condition Discussed plan of care with Dr. Wilkins Nabb Meds Active Scripts Docusate Sodium (Dok) 100 Mg Capsule, 100 MG PO BID Y for CONSTIPATION, #30 CAP Prov:SALMASILVIA 09/05/17 Follow-up Plan 1. Follow up with Dr. Tavon Coronel in one week Primary Care Provider Care Physician No Primary Pending Labs Laboratory Tests Test 09/05/17 04:47 White Blood Count 11.610^3/ul (4.8-10.8) Red Blood Count 3.9710^6/ul (4.70-6.10) Hemoglobin 12.3g/dl (14.0-18.0) Hematocrit 35.6% (42.0-52.0) Mean Corpuscular Volume 89.7fl (82.0-101.0) Mean Corpuscular Hemoglobin 31.0pg (29.0-33.0) Mean Corpuscular Hemoglobin Concent 34.6g/dl (32.0-37.0) Red Cell Distribution Width 11.9% (11.5-14.5) Platelet Count 64585^3/UL (140-415) Mean Platelet Volume 9.1fl (7.4-10.4) Neutrophils % 84.5% (39.0-77.0) Lymphocytes % 10.3% (15.0-51.0) Monocytes % 4.8% (0.0-11.0) Eosinophils % 0.0% (0.0-7.0) Basophils % 0.1% (0.0-2.0) Nucleated Red Blood Cells % 0.0/100WBC (0.0-0.0) Neutrophils # 9.810^3/ul (1.6-7.5) Lymphocytes # 1.210^3/ul (0.8-2.9) Monocytes # 0.610^3/ul (0.3-0.9) Eosinophils # 0.010^3/ul (0.0-0.5) Basophils # 0.010^3/ul (0.0-0.1) Nucleated Red Blood Cells # 0.010^3/ul (0.0-0.0) Sodium Level 141mmol/L (135-144) Potassium Level 4.2mmol/L (3.5-5.1) Chloride Level 107mmol/L (97-110) Carbon Dioxide Level 27mmol/L (21-31) Anion Gap 11 (8-16) Blood Urea Nitrogen 11mg/dl (7-20) Creatinine 0.86mg/dl (0.61-1.24) Glucose Level 123mg/dl (70-220) Calcium Level 9.0mg/dl (8.4-10.2) Phosphorus Level 4.3mg/dl (2.5-4.9) Magnesium Level 1.8mg/dl (1.7-2.5) SILVIA MARSH Sep 05, 2017 10:58
[2017-09-05 14:22] VITALS: BP 106/54; RESP 17
== END 2017-09-05 17:10 | disposition home or self-care (01) | DRG 343 ==
LOC: FTE 20:55 → PP2 23:45
PROVIDERS: ADMIT Internal Medicine; ATTEND Internal Medicine
PROC: 0DTJ4ZZ Resection of Appendix, Percutaneous Endoscopic Approach (ICD-10-PCS; principal; 2017-09-04 12:30)
DX: K35.80 Unspecified acute appendicitis (principal); K40.90 Unilateral inguinal hernia, without obstruction or gangrene, not specified as recurrent
CPT/HCPCS: 36415; 71010; 74176; 80048; 80053; 81001; 83690; 83735; 84100; 85025; 88304; 93005; 96365; 96375; J1100; J1650; J1885; J2270; J2405; J2543; J2710; J2765; J3010; J7030; J7042

== ENCOUNTER 2017-09-23 15:49 | Outpatient (CLI) | payer MEDICAID ==
[~2017-09-23] VITALS: Ht 167.6 cm; Wt 76.8 kg
[~2017-09-23 15:49] MED LIST: DOCU-216 PO; HYDR-3498 PO
[2017-09-23 16:02] VITALS: Ht 167.6 cm; Wt 76.8 kg
[2017-09-23 16:03] VITALS: BP 115/70; PULSE 70; RESP 16
--- NOTE | 2017-09-23 16:25 | PN ---
Date/Time of Note Date/Time of Note DATE: 09/23/17 TIME: 16:23 Assessment/Plan Assessment/Plan Assessment/Plan [facility] Progress Note Date of Service: 09/23/2017 Location of Service: [facility] Today's Assessment & Plan: Overall stable and doing well.. Abdomen remains benign. No indications of major postoperative complications or wound problems. No indication for acute surgical intervention. Okay for patient to return to work with no heavy lifting for another few weeks. We also discussed the repair of his right inguinal hernia which can certainly be done in an elective fashion. Note that the patient is not very significantly symptomatic in this area. Discussed all of the above with the patient and his family and answered all questions. Patient and family appear to understand and agreed with plans. With above assessment, I've recommended the following for today: 1. F/u with PCP 2. F/u with us prn 3. Please let us know when the patient would like to have elective repair of his right inguinal hernia and we will be happy to assist scheduling Thank you again for your great care of this very pleasant patient and wonderful family. If there are any questions, please feel free to call me at [phone]. Nature of presenting problem: low, moderate, high severity Please note that, given the minimal, limited, multiple, extensive number of diagnoses or management options, the minimal or none, limited, moderate, extensive amount and/or complexity of data needed to be reviewed, and minimal, low, moderate, high risk of complications and/or morbidity or mortality, this qualifies as straightforward, low complexity, moderate complexity, high complexity type of decision-making. Disclaimers: 1. Inadvertent spelling and grammatical errors are likely due to electronic health record (EHR)/dictation software used and do not reflect on the quality of delivered patient care. 2. The electronic timestamp recorded on this note does not necessarily reflect the actual date and time of the visit or the service. 3. Portions of this note may have been created through electronic templates and computer algorithms that might bring in information either from the system or from other physicians and providers. Please note that such information may or may not contain errors, the occurrence of which are outside of my control. In general (but not always) this happens either in the beginning or at the end of the note. The portion of the note that I have created are generally done in 1 continuous block of text, flanked at the beginning and at the end by " ", and entered into one field in the EHR. 4. There may be other unanticipated errors in the note that are outside of my control. I can only attest to the portions of the note that I have created. Updated Clinical Summary: A very-pleasant 32-year-old gentleman admitted to [facility] through the emergency department on 09/04/2017 with signs and symptoms consistent with acute appendicitis. S/p an otherwise uncomplicated laparoscopic appendectomy [facility] 09/04/17 with findings of non-perforated appendicitis with periappendicitis. Comorbidities: 1. Acute appendicitis. S/p an otherwise uncomplicated laparoscopic appendectomy [facility] 09/04/17 with findings of non-perforated appendicitis with periappendicitis. 2. BMI 26.6 3. R inguinal hernia, indirect Subjective: No major events or complaints; no abd pain and under control with medications; no n/v/d; no sob or cp; + bowel activity; + activity Objective: Vitals: See below Exam: GENERAL: On exam, the patient was sitting up in a chair and appeared to be comfortable and in no acute distress. ABDOMEN: Soft, nontender and nondistended. Incision are clean, dry and intact without any evidence of erythema, edema, discharge, or hernia. There are no peritoneal signs or guarding. SKIN: Skin appears to be pink and feels warm to touch. NEUROLOGIC: Patient is awake, alert, and follows commands appropriately. Exam/Review of Systems Vital Signs Vitals Vital Signs Date Time Temp Pulse Resp B/P Pulse Ox O2 Delivery O2 Flow Rate FiO2 09/23/17 16:03 97.8 70 16 115/70 98 Room Air MAU GILLIAM M.D. Sep 23, 2017 16:25
== END 2017-09-23 17:00 | disposition home or self-care (01) ==
LOC: HPC 15:49
PROVIDERS: ATTEND Transplant Surgery
DX: K35.80 Unspecified acute appendicitis (principal); K40.90 Unilateral inguinal hernia, without obstruction or gangrene, not specified as recurrent
CPT/HCPCS: G0463